=== PATIENT | male | born 1975 | race Caucasian/White ===

== ENCOUNTER 2023-12-12 10:56 | Emergency (ER) | payer MEDICAID ==
[~2023-12-12] VITALS: Ht 162.6 cm; Wt 77.2 kg
[2023-12-12 11:06] VITALS: TEMP 98.1
[2023-12-12] MEDS ORDERED: MICO57CR2 TP (12:30)
[2023-12-12] MEDS ORDERED: FLUC150T61 PO (12:30)
[2023-12-12] MEDS ORDERED: METF-1211 PO (12:30)
[2023-12-12 12:56] VITALS: BP 135/77; PULSE 81; RESP 18
== END 2023-12-12 13:07 | disposition home or self-care (01) ==
LOC: EMS 11:08
DX: E11.65 Type 2 diabetes mellitus with hyperglycemia (principal); N47.7 Other inflammatory diseases of prepuce
CPT/HCPCS: 82962; 99283